=== PATIENT | male | born 1945 | race Caucasian/White ===

== ENCOUNTER 2021-10-03 08:38 | Inpatient (IN) ==
[2021-10-03 09:08] LABS: Basophils % 0.3 %; Eosinophils # 0.1 K/mcL (0.0-0.6); Eosinophils % 1.5 %; Hematocrit 45.5 % (37.5-50.1); Hemoglobin 15.2 g/dL (12.9-16.9); Immature Granulocytes % 0.5 % (0-4); Lymphocytes # 0.7 K/mcL (0.6-4.6); Lymphocytes % 8.1 %; Mean Corpuscular HGB Conc 33.4 g/dL (31.6-35.5); Mean Corpuscular Hemoglobin 32.1 pg (28.0-33.3); Mean Platelet Volume 9.6 fL (9.4-12.4); Monocytes # 0.5 K/mcL (0.0-1.3); Monocytes % 5.7 %; Neutrophils # 7.4 K/mcL (1.6-8.9); Platelet Count 206 K/mcL (140-400); Red Blood Count 4.74 M/mcL (4.19-5.50); Red Cell Distribution Width 12.9 % (11.5-14.5); Segmented Neutrophils % 83.9 %; White Blood Count 8.8 K/mcL (4.3-11.1)
[2021-10-03 09:11] LABS: VBG HCO3 27 mEq/L (21-27); VBG PCO2 44 mmHg (41-51); VBG PH 7.39 pH Units (7.32-7.42); VBG PO2 27 mmHg (25-50)
[2021-10-03 09:30] LABS: Alanine Aminotransferase 30 Units/L (7-52); Albumin 3.1 g/dL (3.5-5.7); Albumin/Globulin Ratio 0.9 (1.1-2.2); Alkaline Phosphatase 77 Units/L (34-104); Aspartate Amino Transferase 20 Units/L (13-39); BUN/Creatinine Ratio 31 (6-26); Bilirubin,Direct 0.1 mg/dL (0.0-0.2); Bilirubin,Indirect 0.5 mg/dL (0.0-1.0); Bilirubin,Total 0.6 mg/dL (0.3-1.0); Blood Urea Nitrogen 25 mg/dL (8-23); Calcium 8.8 mg/dL (8.6-10.3); Carbon Dioxide 26 mEq/L (23-29); Chloride 100 mEq/L (98-107); Globulin 3.6 g/dL (2.4-3.5); Glucose 93 mg/dL (70-105); Osmolality,Calculated 282 (280-300); Potassium 4.2 mEq/L (3.5-5.1); Sodium 134 mEq/L (136-145); Total Protein 6.7 g/dL (6.4-8.9); Troponin I < 0.03 ng/mL (< 0.04); eGFR For African Americans > 60 (> 60); eGFR For Non-African Americans > 60 (> 60)
[2021-10-03 10:13] LABS: Influenza A PCR Negative (Negative); Influenza B PCR Negative (Negative); Resp. Syncytial Virus PCR Negative (Negative)
[2021-10-03 10:27] LABS: SARS-CoV-2 by PCR (In House) Negative (Negative)
[2021-10-03] MEDS ORDERED: Piperacillin/Tazobactam 3.375 GM in 0.9 % Sodium Chloride Mini Bag 100 ML IVPB ONE (11:02)
[2021-10-03] MEDS ORDERED: 0.9 % Sodium Chloride 1,000 ML IVC ONE (11:02)
[2021-10-03] MEDS ORDERED: Isovue-370 500 ML BOTTLE IVP ONE (11:02)
[2021-10-03] MEDS ORDERED: methylPREDNISolone 125 MG/2 ML VIAL IVP ONE (11:11)
[2021-10-03] MEDS ORDERED: Ipratropium/Albuterol Neb 3 ML IH ONE (11:12)
[2021-10-03] MEDS ORDERED: Naloxone 0.4 MG/ML INJ IVP PRN (12:37)
[2021-10-03] MEDS ORDERED: Perflutren Lipid Microsphere 1.3 ML in 0.9 % Sodium Chloride 8.7 ML IVP PRN (12:51)
[2021-10-03] MEDS: cefTRIAXone 1,000 MG in 0.9 % Sodium Chloride Mini Bag 100 ML IVP SCH (15:34)
[2021-10-03] MEDS: Azithromycin 500 MG in 0.9 % Sodium Chloride 250 ML IVPB SCH (15:34)
[2021-10-03] MEDS: Ipratropium/Albuterol Neb 3 ML IH SCH ×2 (15:41→20:53)
[2021-10-03] MEDS ORDERED: Furosemide 20 MG/2 ML VIAL IVP SCH (17:00)
[2021-10-03] MEDS: MethylPREDNISolone 40 MG/ML VIAL IVP SCH (18:45)
[2021-10-03] MEDS: *HR* Heparin 5,000 UNIT/ML VIAL SQ SCH (18:46)
[2021-10-04] MEDS: Ipratropium/Albuterol Neb 3 ML IH SCH ×6 (00:08→20:42)
[2021-10-04] MEDS: MethylPREDNISolone 40 MG/ML VIAL IVP SCH ×3 (03:41→18:19)
[2021-10-04] MEDS: *HR* Heparin 5,000 UNIT/ML VIAL SQ SCH ×2 (06:11→18:19)
[2021-10-04] MEDS: cefTRIAXone 1,000 MG in 0.9 % Sodium Chloride Mini Bag 100 ML IVP SCH (08:40)
[2021-10-04 13:27] LABS: Hematocrit 40.2 % (37.5-50.1); Immature Granulocytes % 0.8 % (0-4); Lymphocytes # 0.5 K/mcL (0.6-4.6); Lymphocytes % 4.4 %; Mean Corpuscular HGB Conc 33.3 g/dL (31.6-35.5); Mean Corpuscular Hemoglobin 32.6 pg (28.0-33.3); Mean Corpuscular Volume 97.8 fL (83.0-100.0); Mean Platelet Volume 9.8 fL (9.4-12.4); Monocytes # 0.4 K/mcL (0.0-1.3); Monocytes % 3.4 %; Neutrophils # 9.6 K/mcL (1.6-8.9); Platelet Count 219 K/mcL (140-400); Red Blood Count 4.11 M/mcL (4.19-5.50); Red Cell Distribution Width 12.6 % (11.5-14.5); Segmented Neutrophils % 91.4 %; White Blood Count 10.5 K/mcL (4.3-11.1)
[2021-10-04 13:36] LABS: Hemoglobin 13.4 g/dL (12.9-16.9)
[2021-10-04 14:01] LABS: BUN/Creatinine Ratio 41 (6-26); Blood Urea Nitrogen 31 mg/dL (8-23); Calcium 8.8 mg/dL (8.6-10.3); Carbon Dioxide 21 mEq/L (23-29); Chloride 103 mEq/L (98-107); Glucose 199 mg/dL (70-105); Osmolality,Calculated 290 (280-300); Phosphorous 2.8 mg/dL (2.7-4.5); Potassium 3.9 mEq/L (3.5-5.1); Sodium 134 mEq/L (136-145); eGFR For African Americans > 60 (> 60); eGFR For Non-African Americans > 60 (> 60)
[2021-10-04] MEDS: Azithromycin 500 MG in 0.9 % Sodium Chloride 250 ML IVPB SCH (14:16)
[2021-10-04] MEDS ORDERED: Furosemide 20 MG/2 ML VIAL IVP ONE (15:33)
[2021-10-04] MEDS ORDERED: Albumin Human 5% 12.5 GM/250 ML IV.SOLN IVPB ONE (15:34)
[2021-10-05] MEDS: Ipratropium/Albuterol Neb 3 ML IH SCH ×7 (00:09→23:55)
[2021-10-05 03:28] LABS: BUN/Creatinine Ratio 45 (6-26); Blood Urea Nitrogen 40 mg/dL (8-23); Calcium 8.4 mg/dL (8.6-10.3); Carbon Dioxide 23 mEq/L (23-29); Chloride 105 mEq/L (98-107); Glucose 142 mg/dL (70-105); Osmolality,Calculated 296 (280-300); Potassium 4.1 mEq/L (3.5-5.1); Sodium 137 mEq/L (136-145); eGFR For African Americans > 60 (> 60); eGFR For Non-African Americans > 60 (> 60)
[2021-10-05] MEDS: *HR* Heparin 5,000 UNIT/ML VIAL SQ SCH ×2 (04:17→19:18)
[2021-10-05] MEDS: MethylPREDNISolone 40 MG/ML VIAL IVP SCH ×3 (04:17→19:17)
[2021-10-05] MEDS: cefTRIAXone 1,000 MG in 0.9 % Sodium Chloride Mini Bag 100 ML IVP SCH (09:10)
[2021-10-05] MEDS: Azithromycin 500 MG in 0.9 % Sodium Chloride 250 ML IVPB SCH (14:16)
[2021-10-05] MEDS ORDERED: Furosemide 40 MG/4 ML VIAL IVP ONE (14:43)
[2021-10-06] MEDS: MethylPREDNISolone 40 MG/ML VIAL IVP SCH ×3 (02:37→19:37)
[2021-10-06] MEDS: Ipratropium/Albuterol Neb 3 ML IH SCH ×5 (04:22→20:34)
[2021-10-06] MEDS: *HR* Heparin 5,000 UNIT/ML VIAL SQ SCH ×2 (05:56→17:11)
[2021-10-06] MEDS: cefTRIAXone 1,000 MG in 0.9 % Sodium Chloride Mini Bag 100 ML IVP SCH (08:09)
[2021-10-06] MEDS: Azithromycin 250 MG TABLET PO SCH (13:29)
[2021-10-06] MEDS ORDERED: GuaiFENesin Liq 200 MG/10 ML UDC PO PRN (18:03)
[2021-10-06] MEDS: Acetaminophen 325 MG TABLET PO SCH (19:37)
[2021-10-06] MEDS: Ammonium Lactate 30 APPL/225 GM BOTTLE TP SCH (19:37)
[2021-10-06] MEDS: Budesonide/Formoterol 160/4.5 1 PUFF INH IH SCH (20:34)
[2021-10-06] MEDS ORDERED: NON-FORMULARY MEDICATION 1 EACH EACH (Lactose-Reduced Food [Ensure Liquid] 237 ML Liquid) PO SCH (21:00)
[2021-10-07] MEDS: Ipratropium/Albuterol Neb 3 ML IH SCH ×7 (00:15→23:58)
[2021-10-07] MEDS: MethylPREDNISolone 40 MG/ML VIAL IVP SCH (02:57)
[2021-10-07] MEDS: *HR* Heparin 5,000 UNIT/ML VIAL SQ SCH ×2 (06:21→19:37)
[2021-10-07 06:51] LABS: Basophils % 0.1 %; Hematocrit 40.9 % (37.5-50.1); Immature Granulocytes % 1.4 % (0-4); Lymphocytes # 0.4 K/mcL (0.6-4.6); Lymphocytes % 4.2 %; Mean Corpuscular HGB Conc 31.8 g/dL (31.6-35.5); Mean Corpuscular Hemoglobin 31.9 pg (28.0-33.3); Mean Corpuscular Volume 100.5 fL (83.0-100.0); Mean Platelet Volume 9.7 fL (9.4-12.4); Monocytes # 0.3 K/mcL (0.0-1.3); Monocytes % 3.3 %; Neutrophils # 8.2 K/mcL (1.6-8.9); Platelet Count 214 K/mcL (140-400); Red Blood Count 4.07 M/mcL (4.19-5.50); Red Cell Distribution Width 12.7 % (11.5-14.5); White Blood Count 9.1 K/mcL (4.3-11.1)
[2021-10-07 07:52] LABS: BUN/Creatinine Ratio 67 (6-26); Blood Urea Nitrogen 47 mg/dL (8-23); Calcium 8.8 mg/dL (8.6-10.3); Carbon Dioxide 25 mEq/L (23-29); Chloride 105 mEq/L (98-107); Glucose 134 mg/dL (70-105); Osmolality,Calculated 298 (280-300); Potassium 4.2 mEq/L (3.5-5.1); Sodium 137 mEq/L (136-145); eGFR For African Americans > 60 (> 60); eGFR For Non-African Americans > 60 (> 60)
[2021-10-07] MEDS: Budesonide/Formoterol 160/4.5 1 PUFF INH IH SCH ×2 (07:57→19:40)
[2021-10-07] MEDS: Cholecalciferol (D-3) 1,000 UNIT (25MCG) TABLET PO SCH (08:19)
[2021-10-07] MEDS: Acetaminophen 325 MG TABLET PO SCH ×3 (08:19→19:37)
[2021-10-07] MEDS: Finasteride 5 MG TABLET PO SCH (08:20)
[2021-10-07] MEDS: Ammonium Lactate 30 APPL/225 GM BOTTLE TP SCH ×2 (08:20→19:38)
[2021-10-07] MEDS: cefTRIAXone 1,000 MG in 0.9 % Sodium Chloride Mini Bag 100 ML IVP SCH (08:20)
[2021-10-07] MEDS: Azithromycin 250 MG TABLET PO SCH (14:58)
[2021-10-08 01:32] LABS: Basophils % 0.4 %; Eosinophils % 0.1 %; Hematocrit 39.8 % (37.5-50.1); Hemoglobin 13.1 g/dL (12.9-16.9); Immature Granulocytes % 2.6 % (0-4); Lymphocytes # 1.2 K/mcL (0.6-4.6); Lymphocytes % 11.2 %; Mean Corpuscular HGB Conc 32.9 g/dL (31.6-35.5); Mean Corpuscular Hemoglobin 32.8 pg (28.0-33.3); Mean Corpuscular Volume 99.5 fL (83.0-100.0); Mean Platelet Volume 9.6 fL (9.4-12.4); Monocytes # 0.9 K/mcL (0.0-1.3); Monocytes % 8.8 %; Platelet Count 203 K/mcL (140-400); Red Cell Distribution Width 12.6 % (11.5-14.5); Segmented Neutrophils % 76.9 %; White Blood Count 10.4 K/mcL (4.3-11.1)
[2021-10-08 01:49] LABS: BUN/Creatinine Ratio 65 (6-26); Blood Urea Nitrogen 47 mg/dL (8-23); Calcium 8.3 mg/dL (8.6-10.3); Carbon Dioxide 26 mEq/L (23-29); Chloride 104 mEq/L (98-107); Glucose 117 mg/dL (70-105); Osmolality,Calculated 293 (280-300); Potassium 4.1 mEq/L (3.5-5.1); Sodium 135 mEq/L (136-145); eGFR For African Americans > 60 (> 60); eGFR For Non-African Americans > 60 (> 60)
[2021-10-08] MEDS: Ipratropium/Albuterol Neb 3 ML IH SCH ×5 (03:43→20:06)
[2021-10-08] MEDS: *HR* Heparin 5,000 UNIT/ML VIAL SQ SCH ×2 (05:12→17:17)
[2021-10-08] MEDS: Budesonide/Formoterol 160/4.5 1 PUFF INH IH SCH ×2 (07:50→20:06)
[2021-10-08] MEDS: Cholecalciferol (D-3) 1,000 UNIT (25MCG) TABLET PO SCH (09:20)
[2021-10-08] MEDS: Finasteride 5 MG TABLET PO SCH (09:20)
[2021-10-08] MEDS: Ammonium Lactate 30 APPL/225 GM BOTTLE TP SCH ×2 (09:21→20:12)
[2021-10-08] MEDS: predniSONE 20 MG TABLET PO SCH (09:21)
[2021-10-08] MEDS: Acetaminophen 325 MG TABLET PO SCH ×3 (09:21→20:12)
[2021-10-08] MEDS: cefTRIAXone 1,000 MG in 0.9 % Sodium Chloride Mini Bag 100 ML IVP SCH (09:21)
[2021-10-08] MEDS: GuaiFENesin Liq 200 MG/10 ML UDC PO SCH ×3 (10:20→20:12)
[2021-10-08] MEDS: Azithromycin 250 MG TABLET PO SCH (15:11)
[2021-10-09] MEDS: Ipratropium/Albuterol Neb 3 ML IH SCH ×6 (00:04→20:06)
[2021-10-09 03:12] LABS: Basophils % 0.2 %; Eosinophils % 0.1 %; Hematocrit 39.1 % (37.5-50.1); Hemoglobin 12.5 g/dL (12.9-16.9); Immature Granulocytes % 2.1 % (0-4); Lymphocytes # 0.7 K/mcL (0.6-4.6); Lymphocytes % 6.6 %; Mean Corpuscular Hemoglobin 31.6 pg (28.0-33.3); Mean Corpuscular Volume 98.7 fL (83.0-100.0); Mean Platelet Volume 9.5 fL (9.4-12.4); Monocytes # 0.6 K/mcL (0.0-1.3); Monocytes % 5.3 %; Neutrophils # 9.1 K/mcL (1.6-8.9); Platelet Count 203 K/mcL (140-400); Red Blood Count 3.96 M/mcL (4.19-5.50); Red Cell Distribution Width 12.7 % (11.5-14.5); Segmented Neutrophils % 85.7 %; White Blood Count 10.6 K/mcL (4.3-11.1)
[2021-10-09 03:31] LABS: BUN/Creatinine Ratio 65 (6-26); Blood Urea Nitrogen 40 mg/dL (8-23); Carbon Dioxide 27 mEq/L (23-29); Chloride 102 mEq/L (98-107); Glucose 110 mg/dL (70-105); Osmolality,Calculated 288 (280-300); Potassium 4.2 mEq/L (3.5-5.1); Sodium 134 mEq/L (136-145); eGFR For African Americans > 60 (> 60); eGFR For Non-African Americans > 60 (> 60)
[2021-10-09] MEDS: *HR* Heparin 5,000 UNIT/ML VIAL SQ SCH ×2 (05:08→17:18)
[2021-10-09] MEDS: Budesonide/Formoterol 160/4.5 1 PUFF INH IH SCH ×2 (07:40→20:06)
[2021-10-09] MEDS: GuaiFENesin Liq 200 MG/10 ML UDC PO SCH ×3 (08:40→20:33)
[2021-10-09] MEDS: cefTRIAXone 1,000 MG in 0.9 % Sodium Chloride Mini Bag 100 ML IVP SCH (08:41)
[2021-10-09] MEDS: Acetaminophen 325 MG TABLET PO SCH ×3 (08:42→20:33)
[2021-10-09] MEDS: Cholecalciferol (D-3) 1,000 UNIT (25MCG) TABLET PO SCH (08:42)
[2021-10-09] MEDS: predniSONE 20 MG TABLET PO SCH (08:42)
[2021-10-09] MEDS: Finasteride 5 MG TABLET PO SCH (08:42)
[2021-10-09] MEDS: Ammonium Lactate 30 APPL/225 GM BOTTLE TP SCH ×2 (08:43→20:33)
[2021-10-10] MEDS: Ipratropium/Albuterol Neb 3 ML IH SCH ×7 (00:15→23:54)
[2021-10-10] MEDS: *HR* Heparin 5,000 UNIT/ML VIAL SQ SCH ×2 (05:27→17:06)
[2021-10-10] MEDS: Budesonide/Formoterol 160/4.5 1 PUFF INH IH SCH ×2 (08:26→20:31)
[2021-10-10] MEDS: GuaiFENesin Liq 200 MG/10 ML UDC PO SCH ×3 (09:03→22:12)
[2021-10-10] MEDS: Cholecalciferol (D-3) 1,000 UNIT (25MCG) TABLET PO SCH (09:04)
[2021-10-10] MEDS: Acetaminophen 325 MG TABLET PO SCH ×3 (09:04→22:12)
[2021-10-10] MEDS: Finasteride 5 MG TABLET PO SCH (09:04)
[2021-10-10] MEDS: Ammonium Lactate 30 APPL/225 GM BOTTLE TP SCH ×2 (09:05→22:12)
[2021-10-10] MEDS: predniSONE 20 MG TABLET PO SCH (09:05)
[2021-10-10] MEDS: Lactobacillus 1 EACH CAP.SPRINK PO SCH ×2 (13:18→22:12)
[2021-10-11] MEDS: Ipratropium/Albuterol Neb 3 ML IH SCH ×3 (04:10→11:36)
[2021-10-11] MEDS: *HR* Heparin 5,000 UNIT/ML VIAL SQ SCH (06:00)
[2021-10-11] MEDS: Budesonide/Formoterol 160/4.5 1 PUFF INH IH SCH (07:47)
[2021-10-11 08:08] VITALS: BP 115/73; PULSE 90; TEMP 97.8
[2021-10-11] MEDS: Cholecalciferol (D-3) 1,000 UNIT (25MCG) TABLET PO SCH (09:23)
[2021-10-11] MEDS: Acetaminophen 325 MG TABLET PO SCH (09:23)
[2021-10-11] MEDS: Lactobacillus 1 EACH CAP.SPRINK PO SCH (09:23)
[2021-10-11] MEDS: GuaiFENesin Liq 200 MG/10 ML UDC PO SCH (09:23)
[2021-10-11] MEDS: predniSONE 20 MG TABLET PO SCH (09:24)
[2021-10-11] MEDS: Finasteride 5 MG TABLET PO SCH (09:24)
[2021-10-11] MEDS: Ammonium Lactate 30 APPL/225 GM BOTTLE TP SCH (09:24)
[2021-10-11 11:06] LABS: Adenovirus Not Detected (Not Detect); Bordetella Pertussis Not Detected (Not Detect); Chlamydophila pneumoniae Not Detected (Not Detect); Coronavirus 229E Not Detected (Not Detect); Coronavirus HKU1 Not Detected (Not Detect); Coronavirus NL63 Not Detected (Not Detect); Coronavirus OC43 Not Detected (Not Detect); Human Metapneumovirus Not Detected (Not Detect); Human Rhinovirus/Enterovirus Not Detected (Not Detect); Influenza A Subtype 2009 H1 Not Detected (Not Detect); Influenza B Not Detected (Not Detect); Mycoplasma pneumoniae Not Detected (Not Detect); Parainfluenza Virus 1 Not Detected (Not Detect); Parainfluenza Virus 2 Not Detected (Not Detect); Parainfluenza Virus 3 Not Detected (Not Detect); Parainfluenza Virus 4 Not Detected (Not Detect); Respiratory Syncytial Virus Not Detected (Not Detect); SARS-CoV-2 Not Detected (Not Detect)
[2021-10-11 11:37] VITALS: O2SAT 92
== END 2021-10-11 15:21 | DRG 871 ==
LOC: EMEROOARM 08:38 → 2ANU 08:38 → SUATTDRO 12:37 → 2ANU 14:39
PROVIDERS: ADMIT Student in an Organized Health Care Education/Training Program; ATTEND Internal Medicine